=== PATIENT | female | born 1965 | race African-American/Black ===

== ENCOUNTER 2021-09-27 14:22 | Emergency (ER) | payer MEDICARE, MEDICAID ==
[~2021-09-27] VITALS: Ht 170.2 cm; Wt 68.0 kg
[2021-09-27] MEDS ORDERED: IPRATROPIUM BROMIDE (0.02%) 0.5MG/2.5ML NEB HHN STA (14:34)
[2021-09-27] MEDS ORDERED: METHYLPREDNISOLONE SOD SUCC 125 MG/2 ML VIAL IV STA (14:34)
[2021-09-27 15:17] LABS: BASOPHILS % 0.7 % (0.0-2.0); EOSINOPHILS % 1.3 % (0.0-5.0); HEMOGLOBIN. 11.9 g/dL (12.0-16.0); LYMPHOCYTES % 24.4 % (20.0-50.0); MEAN CORPUSCULAR HEMOGLOBIN 27.9 pg (28.0-32.0); MEAN CORPUSCULAR VOLUME 84.8 fL (81.0-99.0); MONOCYTES % 11.3 % (2.0-8.0); NEUTROPHILS % 62.3 % (40.0-76.0); PLATELET 268 x1000/uL (130-400); RED BLOOD CELL COUNT 4.25 mill/uL (4.2-5.4); RED CELL DISTRIBUTION WIDTH 13.6 % (11.6-14.6)
[2021-09-27 15:24] LABS: CHLORIDE 106 mEq/L (98-107)
[2021-09-27] MEDS: ALBUTEROL (0.083%) 2.5MG/3ML NEB HHN SCH (15:25)
[2021-09-27] MEDS ORDERED: DOXYCYCLINE HYCLATE 100MG CAPSULE PO NR (15:30)
[2021-09-27] MEDS ORDERED: POTASSIUM CHLORIDE 20MEQ TABLET SR PO NR (16:15)
[2021-09-27 16:37] VITALS: BP 124/80
[2021-09-27] MEDS ORDERED: ALBUTEROL (0.5%) 2.5MG/0.5ML NEB HHN ONE (17:30)
[2021-09-27] MEDS ORDERED: DOXY100C5 MT (17:44)
[2021-09-27] MEDS ORDERED: P20 MT (17:44)
[2021-09-27] MEDS ORDERED: ALBU18HF2 IH (17:44)
[2021-09-27] MEDS ORDERED: ALBUTEROL (0.083%) 2.5MG/3ML NEB ONE (18:01)
== END 2021-09-27 18:51 | disposition home or self-care (01) ==
LOC: ER 14:22
DX: J44.1 Chronic obstructive pulmonary disease with (acute) exacerbation (principal); E87.6 Hypokalemia; I10 Essential (primary) hypertension; F17.290 Nicotine dependence, other tobacco product, uncomplicated; F12.10 Cannabis abuse, uncomplicated; Z20.822 Contact with and (suspected) exposure to COVID-19
CPT/HCPCS: 36415; 71045; 80053; 83880; 84484; 85025; 87426; 93005; 94640; 96374; 99285; C9803; J2930

== ENCOUNTER 2024-01-23 19:12 | Emergency (ER) | payer MEDICARE, MEDICAID ==
[~2024-01-23] VITALS: Ht 170.2 cm; Wt 55.0 kg
[~2024-01-23 19:12] MED LIST: ALBU18HF2 IH; DOXY100C5 MT; P20 MT
[2024-01-23 19:14] VITALS: BP 138/78; PULSE 60; RESP 20; TEMP 98.4; O2SAT 95
== END 2024-01-23 19:48 | disposition left against medical advice (07) ==
LOC: ER 19:12
DX: R06.02 Shortness of breath (principal); Z53.21 Procedure and treatment not carried out due to patient leaving prior to being seen by health care provider
CPT/HCPCS: 93005